=== PATIENT | male | born 1985 | race American Indian/Alaskan Native ===

== ENCOUNTER 2018-07-14 07:31 | Emergency (ER) | payer BC ==
[2018-07-14] MEDS ORDERED: diphenhydrAMINE 50 MG/ML SDV IVPUSH ONE (07:41)
--- NOTE | 2018-07-14 07:48 | EDM.PDOC ---
ED HPI GENERAL MEDICAL PROBLEM - General Stated Complaint: ALLERGIC REACTION Time Seen by Provider: 07/14/18 07:35 Source of Information: Reports: Patient History Limitations: Reports: No Limitations - History of Present Illness INITIAL COMMENTS - FREE TEXT/NARRATIVE: This 32 yo male patient reports to the ED due to a possible allergic reaction. The patient reports he has been feeling nauseated and not well since Saturday. The patient reports he took one of his daughters Zofran pills this morning for the nausea. After taking the Zofran, the patient reports feeling flushing in his face, itching in his face, neck, upper chest and hands. The patient reports he has not taken any other medications for his current symptoms. 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) - Related Data Allergies Allergy/AdvReac Type Severity Reaction Status Date / Time No Known Allergies Allergy Verified 07/14/18 08:05 Home Meds: Home Meds Cholecalciferol (Vitamin D3) [D3-2000] 2,000 mg PO DAILY 02/28/16 [History] Fenofibric Acid 35 mg PO DAILY 02/28/16 [History] Fexofenadine [Deepika] 180 mg PO DAILY 02/28/16 [History] Losartan [Cozaar] 25 mg PO DAILY 02/28/16 [History] Metoprolol Tartrate 25 mg PO DAILY 02/28/16 [History] Omeprazole 20 mg PO DAILY 02/28/16 [History] Venlafaxine [Effexor] 225 mg PO DAILY 02/28/16 [History] Past Medical History Cardiovascular History: Reports: High Cholesterol, Hypertension Gastrointestinal History: Reports: GERD Psychiatric History: Reports: Anxiety, Depression, Panic Attack Dermatologic History: Reports: Seborrheic Dermatitis - Past Surgical History HEENT Surgical History: Reports: Tonsillectomy GI Surgical History: Reports: Appendectomy Social & Family History - Family History Family Medical History: Noncontributory Cardiac: Reports: [place] Other Cardiac Family History: Dad had a mi at age 37. Brother had a [place] and mother has 5 blockages. Both grandfathers of [place]'s - Caffeine Use Caffeine Use: Reports: Coffee, Soda Other Caffeine Use: coffee 1/day pop 20oz /day ED ROS GENERAL - Review of Systems Review Of Systems: ROS reveals no pertinent complaints other than HPI. ED EXAM, GENERAL - Physical Exam Exam: See Below Exam Limited By: No Limitations General Appearance: Alert, WD/WN, Moderate Distress Eye Exam: Bilateral Eye: EOMI, Normal Inspection, PERRL Ears: Normal External Exam, Normal Canal, Hearing Grossly Normal, Normal TMs Nose: Normal Inspection, Normal Mucosa, No Blood Throat/Mouth: Normal Inspection, Normal Lips, Normal Teeth, Normal Gums, Normal Oropharynx, Normal Voice, No Airway Compromise Head: Atraumatic, Normocephalic Neck: Normal Inspection, Supple, Non-Tender, Full Range of Motion Respiratory/Chest: No Respiratory Distress, Lungs Clear, Normal Breath Sounds, No Accessory Muscle Use, Chest Non-Tender Cardiovascular: Normal Peripheral Pulses, Regular Rate, Rhythm, No Edema, No Gallop, No JVD, No Murmur, No Rub GI/Abdominal: Normal Bowel Sounds, Soft, Non-Tender, No Organomegaly, No Distention, No Abnormal Bruit, No Mass Rectal (Males) Exam: Deferred Back Exam: Normal Inspection, Full Range of Motion, NT Extremities: Normal Inspection, Normal Range of Motion, Non-Tender, Normal Capillary Refill, No Pedal Edema Neurological: Alert, Oriented, CN II-XII Intact, Normal Cognition Psychiatric: Normal Affect, Normal Mood Skin Exam: Erythema (Face, neck, upper chest) Lymphatic: No Adenopathy Course - Vital Signs Last Recorded V/S: Last Vital Signs Temp 37.1 C 07/14/18 07:33 Pulse 95 07/14/18 07:33 Resp 24 H 07/14/18 07:33 BP 173/89 H 07/14/18 07:33 Pulse Ox 98 07/14/18 07:33 - Orders/Labs/Meds Orders: Active Orders 24 hr Category Date Time Status Sodium Chloride 0.9% [Normal Saline] 500 ml Med 07/14/18 08:00 Active IV .BOLUS Medication Orders Sodium Chloride (Normal Saline) 500 mls @ 999 mls/hr IV .BOLUS ROSENDO Last Admin: 07/14/18 07:55 Dose: 999 mls/hr Labs: Laboratory Tests 07/14/18 07/14/18 Range/Units 07:44 07:44 WBC 7.3 (5.0-10.0) 10^3/uL RBC 5.18 (4.6-6.2) 10^6/uL Hgb 14.9 D (14.0-18.0) g/dL Hct 44.2 (40.0-54.0) % MCV 85.3 (80-100) fL MCH 28.8 (27.0-34.0) pg MCHC 33.7 (33.0-35.0) g/dL Plt Count 336 (150-450) 10^3/uL Neut % (Auto) 63.2 (42.2-75.2) % Lymph % (Auto) 25.2 (20.5-50.1) % [place] % (Auto) 10.4 H (2-8) % Eos % (Auto) 1.1 (1.0-3.0) % Baso % (Auto) 0.1 (0.0-1.0) % Sodium 133 L (135-145) mmol/L Potassium 4.0 (3.6-5.0) mmol/L Chloride 103 (101-111) mmol/L Carbon Dioxide 17.0 L (21.0-31.0) mmol/L Anion Gap 17.0 BUN 14 (7-18) mg/dL Creatinine 0.7 (0.6-1.3) mg/dL Est Cr Clr Drug Dosing 171.21 mL/min Estimated GFR (MDRD) > 60 BUN/Creatinine Ratio 20.00 Glucose 157 H (74-105) mg/dL Calcium 9.0 (8.4-10.2) mg/dl Total Bilirubin 0.8 (0.2-1.0) mg/dL AST 37 (10-42) IU/L ALT 46 (10-60) IU/L Alkaline Phosphatase 72 (42-121) IU/L Total Protein 7.9 (6.7-8.2) g/dl Albumin 4.2 (3.2-5.5) g/dl Globulin 3.7 Albumin/Globulin Ratio 1.14 Meds: Medications Generic Name Dose Route Start Last Admin Trade Name Freq PRN Reason Stop Dose Admin Sodium Chloride 500 mls @ 999 mls/hr 07/14/18 08:00 07/14/18 07:55 Normal Saline IV 999 mls/hr .BOLUS ROSENDO Administration Discontinued Medications Generic Name Dose Route Start Last Admin Trade Name Clemente PRN Reason Stop Dose Admin Diphenhydramine HCl 50 mg 07/14/18 07:41 07/14/18 07:55 Benadryl IVPUSH 07/14/18 07:42 50 mg ONETIME ONE Administration Sodium Chloride 1,000 mls @ 999 mls/hr 07/14/18 08:40 07/14/18 08:46 Normal Saline IV 07/14/18 09:40 999 mls/hr .BOLUS ONE Administration Lorazepam 1 mg 07/14/18 08:47 07/14/18 08:57 Ativan IVPUSH 07/14/18 08:48 1 mg ONETIME ONE Administration Metoclopramide HCl 10 mg 07/14/18 08:22 07/14/18 08:27 Reglan IVPUSH 07/14/18 08:23 10 mg ONETIME ONE Administration - Re-Assessments/Exams Free Text/Narrative Re-Assessment/Exam: 07/14/18 08:48 The patient was up pacing around the room. The patient reports that he feels "antsy" at this time. The patient reports that he did not take his Effexor this morning, but did take it yesterday. Free Text/Narrative Re-Assessment/Exam: 07/14/18 09:46 The patient reports feeling better. The patient does have hives on his arms and upper abdomen/lower chest. Departure - Departure Time of Disposition: 09:47 Disposition: Home, Self-Care 01 Condition: Fair Clinical Impression: Anxiety, Gastroenteritis Allergic drug reaction Qualifiers: Encounter type: initial encounter Qualified Code(s): T78.40XA - Allergy, unspecified, initial encounter - Discharge Information *PRESCRIPTION DRUG MONITORING PROGRAM REVIEWED*: Not Applicable *COPY OF PRESCRIPTION DRUG MONITORING REPORT IN PATIENT CINDY: Not Applicable Instructions: Allergies, Adult, [id number], Viral Gastroenteritis, Adult, [id number] Forms: ED Department Discharge Care Plan Goals: The patient was advised of the examination and lab results. The patient was given IV fluids, IV Reglan, IV Benadryl and IV Ativan while in the ED. The patient was discharged with a script for Reglan (10 mg) #20 to take 1 by mouth 4 times per day as needed for nausea. The patient was encouraged to take Benadryl (25 mg) every 6 hours for the next 2 days. If the patient has any additional symptoms or concerns, the patient should either return to the emergency department or visit his primary care facility. - My Orders Last 24 Hours: My Active Orders 07/14/18 08:00 Sodium Chloride 0.9% [Normal Saline] 500 ml IV .BOLUS - Assessment/Plan Last 24 Hours: My Active Orders 07/14/18 08:00 Sodium Chloride 0.9% [Normal Saline] 500 ml IV .BOLUS
[2018-07-14] MEDS ORDERED: Sodium Chloride 0.9% 500 ML IV SCH (08:00)
[2018-07-14 08:05] VITALS: BP 173/89
[2018-07-14 08:11] LABS: CHLORIDE,CL 103 mmol/L (101-111); SODIUM,NA 133 mmol/L (135-145)
[2018-07-14] MEDS ORDERED: Metoclopramide 10 MG/2 ML SDV IVPUSH ONE (08:22)
[2018-07-14] MEDS ORDERED: Sodium Chloride 0.9% 1,000 ML IV ONE (08:40)
[2018-07-14] MEDS ORDERED: LORazepam 2 MG/ML Syringe IVPUSH ONE (08:47)
== END 2018-07-14 10:30 | disposition home or self-care (01) ==
LOC: DL.ED 07:31
DX: L29.9 Pruritus, unspecified (principal); T45.0X5A Adverse effect of antiallergic and antiemetic drugs, initial encounter; K52.9 Noninfective gastroenteritis and colitis, unspecified; I10 Essential (primary) hypertension; F41.9 Anxiety disorder, unspecified; Z79.899 Other long term (current) drug therapy
CPT/HCPCS: 36415; 80053; 85025; 87804; 96361; 96374; 96375; 99283; J1200; J2060; J2765; J7030; J7040

== ENCOUNTER 2018-08-23 19:58 | Emergency (ER) | payer BC ==
--- NOTE | 2018-08-23 20:27 | EDM.PDOC ---
ED HPI GENERAL MEDICAL PROBLEM - General Chief Complaint: Cardiovascular Problem Stated Complaint: HAS PVC'S A LOT LATELY Time Seen by Provider: 08/23/18 20:21 Source of Information: Reports: Patient History Limitations: Reports: No Limitations - History of Present Illness INITIAL COMMENTS - FREE TEXT/NARRATIVE: gives h/o PVC since 20 y/o, was eval by turkey picker back then and was told ok. then 2 years ago it got more frequent, was eval by Dr Garcia @ and told ok. then Wed started to have them more frequently and worse today. otherwise feels fine in between. states when he gets these PVC he feels like something took his breath away but not a pain then legs get weak afterwards if he has too many of these. - Related Data Allergies Allergy/AdvReac Type Severity Reaction Status Date / Time metoclopramide [From Reglan] Allergy Swelling Verified 08/23/18 20:18 Home Meds: Home Meds Cholecalciferol (Vitamin D3) [D3-2000] 2,000 mg PO DAILY 02/28/16 [History] Fenofibric Acid 35 mg PO DAILY 02/28/16 [History] Fexofenadine [Deepika] 180 mg PO DAILY 02/28/16 [History] Losartan [Cozaar] 25 mg PO DAILY 02/28/16 [History] Metoprolol Tartrate 25 mg PO DAILY 02/28/16 [History] Omeprazole 20 mg PO DAILY 02/28/16 [History] Venlafaxine [Effexor] 225 mg PO DAILY 02/28/16 [History] Methotrexate Sodium [Methotrexate] 1 tab PO WEEKLY 08/23/18 [History] metFORMIN [Glucophage XR] 500 mg PO BIDMEALS 08/23/18 [History] Past Medical History Cardiovascular History: Reports: High Cholesterol, Hypertension Gastrointestinal History: Reports: GERD Psychiatric History: Reports: Anxiety, Depression, Panic Attack Hematologic History: Reports: Folic Acid Dermatologic History: Reports: Seborrheic Dermatitis - Past Surgical History HEENT Surgical History: Reports: Tonsillectomy GI Surgical History: Reports: Appendectomy Social & Family History - Family History Family Medical History: Noncontributory Cardiac: Reports: [place] Other Cardiac Family History: Dad had a mi at age 37. Brother had a ID and mother has 5 blockages. Both grandfathers of [place]'s - Tobacco Use Smoking Status *Q: Never Smoker - Caffeine Use Caffeine Use: Reports: Soda Other Caffeine Use: coffee 1/day pop 20oz /day - Alcohol Use Date of Last Drink: 08/22/18 - Recreational Drug Use Recreational Drug Use: No ED ROS GENERAL - Review of Systems Review Of Systems: ROS reveals no pertinent complaints other than HPI. ED EXAM, GENERAL - Physical Exam Exam: See Below Exam Limited By: No Limitations General Appearance: Alert, WD/WN, Mild Distress, Other (upset) Ears: Hearing Grossly Normal Throat/Mouth: Normal Voice, No Airway Compromise Head: Atraumatic Neck: Non-Tender, Full Range of Motion Respiratory/Chest: No Respiratory Distress Cardiovascular: Regular Rate, Rhythm GI/Abdominal: Soft, Non-Tender Neurological: Alert, Oriented, Normal Cognition, Normal Gait, No Motor/Sensory Deficits Psychiatric: Flat Affect Skin Exam: Warm, Dry, Normal Color Lymphatic: No Adenopathy Course - Vital Signs Last Recorded V/S: Last Vital Signs Temp 36.0 C 08/23/18 21:39 Pulse 93 08/23/18 21:39 Resp 19 08/23/18 21:39 BP 150/76 H 08/23/18 21:39 Pulse Ox 99 08/23/18 21:39 - Orders/Labs/Meds Orders: Active Orders 24 hr Category Date Time Status EKG Documentation Completion [RC] STAT Care 08/23/18 20:20 Active Labs: Laboratory Tests 08/23/18 08/23/18 Range/Units 20:30 20:30 WBC 6.4 (5.0-10.0) 10^3/uL RBC 4.73 (4.6-6.2) 10^6/uL Hgb 14.0 (14.0-18.0) g/dL Hct 40.4 (40.0-54.0) % MCV 85.4 (80-100) fL MCH 29.6 (27.0-34.0) pg MCHC 34.7 (33.0-35.0) g/dL Plt Count 344 (150-450) 10^3/uL Neut % (Auto) 57.2 (42.2-75.2) % Lymph % (Auto) 31.7 (20.5-50.1) % [place] % (Auto) 7.5 (2-8) % Eos % (Auto) 3.1 H (1.0-3.0) % Baso % (Auto) 0.5 (0.0-1.0) % Sodium 137 (135-145) mmol/L Potassium 3.7 (3.6-5.0) mmol/L Chloride 103 (101-111) mmol/L Carbon Dioxide 22.0 (21.0-31.0) mmol/L Anion Gap 15.7 BUN 12 (7-18) mg/dL Creatinine 0.8 (0.6-1.3) mg/dL Est Cr Clr Drug Dosing 149.81 mL/min Estimated GFR (MDRD) > 60 BUN/Creatinine Ratio 15.00 Glucose 173 H (74-105) mg/dL Calcium 9.2 (8.4-10.2) mg/dl Total Bilirubin 0.6 (0.2-1.0) mg/dL AST 36 (10-42) IU/L ALT 36 (10-60) IU/L Alkaline Phosphatase 65 (42-121) IU/L Troponin I < 0.02 (0.00-0.02) ng/ml Total Protein 7.4 (6.7-8.2) g/dl Albumin 3.9 (3.2-5.5) g/dl Globulin 3.5 Albumin/Globulin Ratio 1.11 - Re-Assessments/Exams Free Text/Narrative Re-Assessment/Exam: 08/23/18 21:59 monitor shows episodic PVC, sometimes 8/minute then nothing for awhile. 08/23/18 22:[address] Haddad @ who kindly accepted pt. Departure - Departure Time of Disposition: 22:19 Disposition: DC/Tfer to [facility] 02 Reason for Transfer *Q: Other Condition: Fair Clinical Impression: Palpitations, Frequent PVCs Dyspnea Qualifiers: Dyspnea type: unspecified Qualified Code(s): R06.00 - Dyspnea, unspecified Forms: Interfacility Transfer EMTALA - My Orders Last 24 Hours: My Active Orders 08/23/18 20:20 EKG Documentation Completion [RC] STAT - Assessment/Plan Last 24 Hours: My Active Orders 08/23/18 20:20 EKG Documentation Completion [RC] STAT
[2018-08-23 20:59] LABS: ANION GAP 15.7; CHLORIDE,CL 103 mmol/L (101-111); SODIUM,NA 137 mmol/L (135-145)
[2018-08-23 21:40] VITALS: BP 150/76
== END 2018-08-23 23:30 ==
LOC: DL.ED 19:58
DX: I49.3 Ventricular premature depolarization (principal); R06.00 Dyspnea, unspecified; E78.00 Pure hypercholesterolemia, unspecified; I10 Essential (primary) hypertension; K21.9 Gastro-esophageal reflux disease without esophagitis; Z88.8 Allergy status to other drugs, medicaments and biological substances; Z79.899 Other long term (current) drug therapy
CPT/HCPCS: 36415; 71045; 80053; 84484; 85025; 93005; 99285-25

== ENCOUNTER 2019-01-05 04:16 | Emergency (ER) | payer BC ==
[2019-01-05] MEDS ORDERED: EPINEPHrine 1 MG/1 ML Amp SUBCUT ONE (04:33)
[2019-01-05] MEDS ORDERED: Albuterol 0.083% 2.5 MG/3 ML Neb Soln NEB ONE (04:33)
[2019-01-05] MEDS ORDERED: methylPREDNISolone Sodium Succinate 125 MG/2 ML SDV IVPUSH ONE (04:33)
--- NOTE | 2019-01-05 04:55 | EDM.PDOC ---
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 C /o itching and cough No GI sx. 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: Benadryl - Related Data Allergies Allergy/AdvReac Type Severity Reaction Status Date / Time ondansetron [From Zofran] Allergy Swelling Verified 01/05/19 04:25 Home Meds: Home Meds Cholecalciferol (Vitamin D3) [D3-2000] 2,000 mg PO DAILY 02/28/16 [History] Fenofibric Acid 35 mg PO DAILY 02/28/16 [History] Fexofenadine [Deepika] 180 mg PO DAILY 02/28/16 [History] Losartan [Cozaar] 25 mg PO DAILY 02/28/16 [History] Metoprolol Tartrate 25 mg PO DAILY 02/28/16 [History] Omeprazole 20 mg PO DAILY 02/28/16 [History] Venlafaxine [Effexor] 225 mg PO DAILY 02/28/16 [History] Methotrexate Sodium [Methotrexate] 1 tab PO WEEKLY 08/23/18 [History] metFORMIN [Glucophage XR] 500 mg PO BIDMEALS 08/23/18 [History] Past Medical History Cardiovascular History: Reports: High Cholesterol, Hypertension Gastrointestinal History: Reports: GERD Psychiatric History: Reports: Anxiety, Depression, Panic Attack Hematologic History: Reports: Folic Acid Dermatologic History: Reports: Seborrheic Dermatitis - Past Surgical History HEENT Surgical History: Reports: Tonsillectomy GI Surgical History: Reports: Appendectomy Social & Family History - Family History Family Medical History: Noncontributory Cardiac: Reports: [place] Other Cardiac Family History: Dad had a mi at age 37. Brother had a [place] and mother has 5 blockages. Both grandfathers of [place]'s - Tobacco Use Smoking Status *Q: Unknown Ever Smoked Second Hand Smoke Exposure: No - Caffeine Use Caffeine Use: Reports: Soda Other Caffeine Use: coffee 1/day pop 20oz /day - Alcohol Use Days Per Week of Alcohol Use: 1 Number of Drinks Per Day: 3 Total Drinks Per Week: 3 - Recreational Drug Use Recreational Drug Use: No ED ROS GENERAL - Review of Systems Review Of Systems: ROS reveals no pertinent complaints other than HPI. ED EXAM, GENERAL - Physical Exam Exam: See Below Exam Limited By: No Limitations General Appearance: Mild Distress, Obese Eye Exam: Bilateral Eye: EOMI Nose: Normal Inspection Throat/Mouth: Normal Inspection, Normal Voice Head: Atraumatic, Normocephalic Neck: Normal Inspection Respiratory/Chest: No Respiratory Distress, Wheezing (right expiratory), Other ( intermittent dry cough) Cardiovascular: Normal Peripheral Pulses, Regular Rate, Rhythm GI/Abdominal: Soft Extremities: Normal Range of Motion Neurological: Alert, Oriented, Normal Cognition Psychiatric: Normal Affect, Normal Mood Skin Exam: Warm, Dry, Intact, Rash (few welts neck mild pick flush patches back abdomen clear few excoriated areas right stroud, psoriasis patch left stroud) Course - Vital Signs Last Recorded V/S: Last Vital Signs Temp 96.9 F 01/05/19 05:55 Pulse 91 01/05/19 05:55 Resp 16 01/05/19 05:55 BP 162/81 H 01/05/19 05:55 Pulse Ox 98 01/05/19 05:55 - Orders/Labs/Meds Orders: Active Orders 24 hr Category Date Time Status RT Aerosol Therapy [RC] ASDIRECTED Care 01/05/19 04:34 Active Meds: Medications Discontinued Medications Generic Name Dose Route Start Last Admin Trade Name Clemente PRN Reason Stop Dose Admin Albuterol 2.5 mg 01/05/19 04:33 01/05/19 04:51 Proventil Neb Soln NEB 01/05/19 04:34 2.5 mg ONETIME ONE Administration Epinephrine HCl 0.3 mg 01/05/19 04:33 01/05/19 04:51 Adrenalin SUBCUT 01/05/19 04:34 0.3 mg ONETIME ONE Administration Methylprednisolone Sodium Succinate 125 mg 01/05/19 04:33 01/05/19 04:52 Solu-Medrol IVPUSH 01/05/19 04:34 125 mg ONETIME ONE Administration Metoclopramide HCl 10 mg 01/05/19 05:09 01/05/19 05:17 Reglan IVPUSH 01/05/19 05:10 10 mg ONETIME ONE Administration - Re-Assessments/Exams Free Text/Narrative Re-Assessment/Exam: 01/05/19 05:08 Lungs clear reports less itching sensation cough improved lungs clear. Some nausea. Departure - Departure Time of Disposition: 05:32 Disposition: Home, Self-Care 01 Condition: Good Clinical Impression: Allergic reaction Qualifiers: Encounter type: initial encounter Qualified Code(s): T78.40XA - Allergy, unspecified, initial encounter - Discharge Information *PRESCRIPTION DRUG MONITORING PROGRAM REVIEWED*: No *COPY OF PRESCRIPTION DRUG MONITORING REPORT IN PATIENT CINDY: No Instructions: Allergies, Adult, [id number] Referrals: Maranda Poe NP [Primary Care Provider] - Forms: ED Department Discharge Additional Instructions: continue benadryl 25-50mg every 4 hours x 24 hours then as needed prednisone 10mg 40mg at this am then 20mg daily x 2 days 10mg x 2days follow up if symptoms worsen difficulty breathing pepcid OTC daily x 5 days - My Orders Last 24 Hours: My Active Orders 01/05/19 04:34 RT Aerosol Therapy [RC] ASDIRECTED - Assessment/Plan Last 24 Hours: My Active Orders 01/05/19 04:34 RT Aerosol Therapy [RC] ASDIRECTED
[2019-01-05] MEDS ORDERED: Metoclopramide 10 MG/2 ML SDV IVPUSH ONE (05:09)
[2019-01-05 06:00] VITALS: BP 162/81; PULSE 91
== END 2019-01-05 05:57 | disposition home or self-care (01) ==
LOC: DL.ED 04:16
DX: T78.40XA Allergy, unspecified, initial encounter (principal); I10 Essential (primary) hypertension; E78.00 Pure hypercholesterolemia, unspecified; K21.9 Gastro-esophageal reflux disease without esophagitis; F41.9 Anxiety disorder, unspecified; F32.9 Major depressive disorder, single episode, unspecified; Z88.8 Allergy status to other drugs, medicaments and biological substances; Z79.899 Other long term (current) drug therapy; Z79.84 Long term (current) use of oral hypoglycemic drugs
CPT/HCPCS: 94640; 96372; 96374; 96375; 99283; J0171; J2765; J2930; J7613-GY

== ENCOUNTER 2019-06-04 18:22 | Emergency (ER) | payer BC ==
[2019-06-04 18:41] VITALS: BP 151/85; PULSE 76
[2019-06-04] MEDS ORDERED: Sodium Chloride 0.9% 10 ML Syringe FLUSH PRN (18:41)
[2019-06-04] MEDS ORDERED: Aspirin 81 MG Tab.Chew PO ONE (18:42)
[2019-06-04 19:13] LABS: ANION GAP 14.6; CHLORIDE,CL 101 mmol/L (101-111); SODIUM,NA 136 mmol/L (135-145)
[2019-06-04] MEDS ORDERED: Albuterol 0.083% 2.5 MG/3 ML Neb Soln NEB ONE (19:32)
--- NOTE | 2019-06-04 19:32 | EDM.PDOC ---
ED HPI GENERAL MEDICAL PROBLEM - General Chief Complaint: Chest Pain Stated Complaint: POSSIBLE PNEUMONIA [id number] Time Seen by Provider: 06/04/19 19:23 Source of Information: Reports: Patient, RN, RN Notes Reviewed History Limitations: Reports: No Limitations - History of Present Illness INITIAL COMMENTS - FREE TEXT/NARRATIVE: meghan presents to ER from clinic with complaint of chest heaviness. Patient states he was positive for influenza on Saturday. Patient states chest tightness and cough continues, states he feels it is intercostal. States he has not had a fever since Saturday. States he feels congested. Patient was sent from the clinic due to possible changes on EKG. Upon obtaining new EKG in the ER, it is unchanged from last EKG in September 2018 Onset: Gradual chest wal Pain Score (Numeric/FACES): 3 - Related Data Allergies Allergy/AdvReac Type Severity Reaction Status Date / Time ondansetron [From Zofran] Allergy Swelling Verified 06/04/19 18:45 Home Meds: Home Meds Cholecalciferol (Vitamin D3) [D3-2000] 2,000 mg PO DAILY 02/28/16 [History] Fenofibric Acid 35 mg PO DAILY 02/28/16 [History] Fexofenadine [Deepika] 180 mg PO DAILY 02/28/16 [History] Losartan [Cozaar] 25 mg PO DAILY 02/28/16 [History] Metoprolol Tartrate 25 mg PO DAILY 02/28/16 [History] Omeprazole 20 mg PO DAILY 02/28/16 [History] Venlafaxine [Effexor] 225 mg PO DAILY 02/28/16 [History] metFORMIN [Glucophage XR] 500 mg PO BIDMEALS 08/23/18 [History] Secukinumab [Cosentyx Pen (2 Pens)] 300 mg SUBCUT .WEEKLY 06/04/19 [History] Past Medical History HEENT History: Reports: None Cardiovascular History: Reports: High Cholesterol, Hypertension Respiratory History: Reports: None Gastrointestinal History: Reports: GERD Genitourinary History: Reports: None Musculoskeletal History: Reports: None Neurological History: Reports: None Psychiatric History: Reports: Anxiety, Depression, Panic Attack Endocrine/Metabolic History: Reports: Diabetes, Type II, Obesity/BMI 30+ Hematologic History: Reports: Folic Acid Immunologic History: Reports: None Oncologic (Cancer) History: Reports: None Dermatologic History: Reports: Seborrheic Dermatitis, Other (See Below) Other Dermatologic History: psoriatic arthritis - Infectious Disease History Infectious Disease History: Reports: None - Past Surgical History HEENT Surgical History: Reports: Tonsillectomy Cardiovascular Surgical History: Reports: None Respiratory Surgical History: Reports: None GI Surgical History: Reports: Appendectomy Male Surgical History: Reports: None Neurological Surgical History: Reports: None Musculoskeletal Surgical History: Reports: None Social & Family History - Family History Family Medical History: Noncontributory Cardiac: Reports: AR Other Cardiac Family History: Dad had a mi at age 37. Brother had a AR and mother has 5 blockages. Both grandfathers of AR's - Tobacco Use Smoking Status *Q: Never Smoker Second Hand Smoke Exposure: No - Caffeine Use Caffeine Use: Reports: Coffee Other Caffeine Use: coffee 1/day pop 20oz /day - Recreational Drug Use Recreational Drug Use: No ED ROS GENERAL - Review of Systems Review Of Systems: Comprehensive ROS is negative, except as noted in HPI. ED EXAM, GENERAL - Physical Exam Exam: See Below Exam Limited By: No Limitations General Appearance: Alert, WD/WN, No Apparent Distress Eye Exam: Bilateral Eye: EOMI, Normal Inspection Ears: Normal External Exam, Hearing Grossly Normal Nose: Normal Inspection Throat/Mouth: Normal Inspection, Normal Voice, No Airway Compromise Head: Atraumatic, Normocephalic Neck: Normal Inspection, Supple, Non-Tender, Full Range of Motion Respiratory/Chest: No Respiratory Distress, No Accessory Muscle Use, Chest Non- Tender, Decreased Breath Sounds, Wheezing (expiratory) Cardiovascular: Normal Peripheral Pulses, Regular Rate, Rhythm, No Edema, No Gallop, No JVD, No Murmur, No Rub Peripheral Pulses: 2+: Radial (L), Radial (R) GI/Abdominal: Normal Bowel Sounds, Soft, Non-Tender (Male) Exam: Deferred Rectal (Males) Exam: Deferred Back Exam: Normal Inspection, Full Range of Motion, NT Extremities: Normal Inspection, Normal Range of Motion, Non-Tender, Normal Capillary Refill, No Pedal Edema Neurological: Alert, Oriented, CN II-XII Intact, Normal Cognition, Normal Gait, Normal Reflexes, No Motor/Sensory Deficits Psychiatric: Normal Affect, Normal Mood Skin Exam: Warm, Dry, Intact, Normal Color, No Rash Lymphatic: No Adenopathy Course - Vital Signs Last Recorded V/S: Last Vital Signs Temp 97.1 F 06/04/19 18:40 Pulse 76 06/04/19 18:40 Resp 19 06/04/19 18:40 BP 151/85 H 06/04/19 18:40 Pulse Ox 99 06/04/19 18:40 - Orders/Labs/Meds Orders: Active Orders 24 hr Category Date Time Status EKG 12 Lead [EKG Documentation Completion] [RC] STAT Care 06/04/19 18:41 Active Peripheral IV Care [RC] . DIRECTED Care 06/04/19 18:41 Active RT Aerosol Therapy [RC] ASDIRECTED Care 06/04/19 19:32 Active Peripheral IV Insertion Adult [OM.PC] Stat Oth 06/04/19 18:41 Ordered Labs: Laboratory Tests 06/04/19 06/04/19 06/04/19 Range/Units 18:50 18:50 18:50 WBC 5.4 (5.0-10.0) 10^3/uL RBC 4.75 (4.6-6.2) 10^6/uL Hgb 14.0 (14.0-18.0) g/dL Hct 40.3 (40.0-54.0) % MCV 84.8 (80-100) fL MCH 29.5 (27.0-34.0) pg MCHC 34.7 (33.0-35.0) g/dL Plt Count 312 (150-450) 10^3/uL Neut % (Auto) 53.4 (42.2-75.2) % Lymph % (Auto) 35.2 (20.5-50.1) % Taney % (Auto) 7.4 (2-8) % Eos % (Auto) 3.4 H (1.0-3.0) % Baso % (Auto) 0.6 (0.0-1.0) % D-Dimer, Quantitative < 100 (0-400) ng/mL Sodium 136 (135-145) mmol/L Potassium 3.6 (3.6-5.0) mmol/L Chloride 101 (101-111) mmol/L Carbon Dioxide 24.0 (21.0-31.0) mmol/L Anion Gap 14.6 BUN 11 (7-18) mg/dL Creatinine 0.9 (0.6-1.3) mg/dL Est Cr Clr Drug Dosing 131.93 mL/min Estimated GFR (MDRD) > 60 BUN/Creatinine Ratio 12.22 Glucose 139 H (74-105) mg/dL Calcium 8.9 (8.4-10.2) mg/dl Total Bilirubin 0.6 (0.2-1.0) mg/dL AST 23 (10-42) IU/L ALT 34 (10-60) IU/L Alkaline Phosphatase 57 (42-121) IU/L Troponin I < 0.02 (0.00-0.02) ng/ml Total Protein 7.8 (6.7-8.2) g/dl Albumin 4.2 (3.2-5.5) g/dl Globulin 3.6 Albumin/Globulin Ratio 1.17 Meds: Medications Discontinued Medications Generic Name Dose Route Start Last Admin Trade Name Freq PRN Reason Stop Dose Admin Albuterol 2.5 mg 06/04/19 19:32 06/04/19 19:43 Proventil Neb Soln NEB 06/04/19 19:33 2.5 mg ONETIME ONE Administration Aspirin 324 mg 06/04/19 18:42 06/04/19 18:51 Aspirin PO 06/04/19 18:43 324 mg ONETIME ONE Administration Prednisone 40 mg 06/04/19 19:47 06/04/19 19:54 Prednisone PO 06/04/19 19:48 40 mg ONETIME ONE Administration Sodium Chloride 10 ml 06/04/19 18:41 06/04/19 19:43 Saline Flush FLUSH 10 ml ASDIRECTED PRN Administration Keep Vein Open - Radiology Interpretation Free Text/Narrative:: Chest xray: FINDINGS: Lungs: Unremarkable. No consolidation. Pleural space: Unremarkable. No pleural effusion. No pneumothorax. Heart/Mediastinum: Unremarkable. No cardiomegaly. Bones/joints: Unremarkable. IMPRESSION: No acute findings. Thank you for allowing us to participate in the care of your patient. Dictated and Authenticated by: Jonathon Street MD 06/04/2019 7:24 PM Central Time ([place] & [place]) See rad report Departure - Departure Time of Disposition: 20:05 Disposition: Home, Self-Care 01 Condition: Fair Clinical Impression: Viral upper respiratory tract infection - Discharge Information *PRESCRIPTION DRUG MONITORING PROGRAM REVIEWED*: No *COPY OF PRESCRIPTION DRUG MONITORING REPORT IN PATIENT CINDY: No Instructions: Cool Mist Vaporizer, Cough, Adult, [id number], Viral Respiratory Infection, [id number], Nonspecific Chest Pain, [id number], Upper Respiratory Infection, Adult, [id number] Referrals: Myles Cervantes [Primary Care Provider] - Forms: ED Department Discharge Additional Instructions: RX: Prednisone 40mg orally once daily for 4 more days Albuterol inhaler 1-2 puffs as needed every 4 hours for shortness of breath or cough Follow up with your primary care facility if no improvement May use Tylenol and/or Ibuprofen as directed for pain/fever Sepsis Event Note - Evaluation Sepsis Screening Result: No Definite Risk - Focused Exam Vital Signs: Vital Signs Temp Pulse Resp BP Pulse Ox 06/04/19 18:40 97.1 F 76 19 151/85 H 99 Date Exam was Performed: 06/04/19 Time Exam was Performed: 22:09 - My Orders Last 24 Hours: My Active Orders 06/04/19 19:32 RT Aerosol Therapy [RC] ASDIRECTED - Assessment/Plan Last 24 Hours: My Active Orders 06/04/19 19:32 RT Aerosol Therapy [RC] ASDIRECTED
[2019-06-04] MEDS ORDERED: predniSONE 20 MG Tab PO ONE (19:47)
== END 2019-06-04 20:14 | disposition home or self-care (01) ==
LOC: DL.ED 18:22
DX: J06.9 Acute upper respiratory infection, unspecified (principal); E78.00 Pure hypercholesterolemia, unspecified; I10 Essential (primary) hypertension; K21.9 Gastro-esophageal reflux disease without esophagitis; E11.9 Type 2 diabetes mellitus without complications; E66.9 Obesity, unspecified; Z88.8 Allergy status to other drugs, medicaments and biological substances; Z79.899 Other long term (current) drug therapy; Z79.84 Long term (current) use of oral hypoglycemic drugs; Z90.49 Acquired absence of other specified parts of digestive tract
CPT/HCPCS: 36415; 71045; 80053; 84484; 85025; 85379; 93005; 99285; A9270; J7613-GY